=== PATIENT | female | born 1975 | race African-American/Black ===

== ENCOUNTER 2020-01-22 17:30 | Observation (INO) | payer OTHER ==
[2020-01-22] MEDS ORDERED: TETANUS & DIPHTHERIA TOX,ADULT 0.5 ML VIAL ONE (18:31)
[2020-01-22] MEDS ORDERED: MORPHINE 2 MG/ML SYR ONE ×2 (18:31→19:39)
[2020-01-22] MEDS ORDERED: ONDANSETRON 4 MG/2 ML VIAL ONE (18:31)
[2020-01-22 18:34] LABS: Absolute Lymphocytes (CBC) 1.2 K/uL (0.7-4.9); Basophils % 0.7 % (0-1.3); Hematocrit 34.1 % (36.0-45.0); Lymphocytes % 21.1 % (15.3-44.8); RBC Red Blood Cell Count 3.71 M/uL (3.86-4.86)
[2020-01-22 18:50] LABS: Albumin 3.5 g/dL (3.4-5.0); Bilirubin Direct 0.1 mg/dL (0-0.2); Bilirubin Total 0.4 mg/dL (0.2-1.0); Potassium 3.3 mmol/L (3.5-5.1)
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
--- NOTE | 2020-01-22 19:13 | RAD REPORT ---
EXAM DESCRIPTION: RAD - Shoulder Right 2 View - 01/22/2020 6:58 pm CLINICAL HISTORY: Right shoulder pain FINDINGS: No fracture or dislocation is seen involving the right shoulder
--- NOTE | 2020-01-22 19:14 | RAD REPORT ---
EXAM DESCRIPTION: RAD - Elbow Right 3 View - 01/22/2020 6:59 pm CLINICAL HISTORY: Elbow pain FINDINGS: No fracture or dislocation is seen.
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
--- NOTE | 2020-01-22 19:19 | RAD REPORT ---
EXAM DESCRIPTION: Mauricio Single View01/22/2020 6:31 pm CLINICAL HISTORY: Chest pain FINDINGS: The lungs appear clear of acute infiltrate. The heart is normal size. Multiple nondisplaced and minimally displaced right rib fractures are better seen on the CT chest marlena e date
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
[2020-01-22] MEDS ORDERED: NS KCL 20MEQ 1,000 ML IV ONE (19:40)
[2020-01-22] MEDS: NS KCL 20MEQ 20 MEQ/1,000 ML BAG IV SCH (22:10)
[2020-01-22] MEDS ORDERED: ONDANSETRON 4 MG/2 ML VIAL IV PRN (22:10)
[2020-01-22] MEDS ORDERED: ACETAMINOPHEN 325 MG TABLET PO PRN (22:23)
[2020-01-22 22:59] VITALS: BMI 35.5
[2020-01-22] MEDS: FAMOTIDINE 20 MG/2 ML VIAL IV SCH (23:24)
[2020-01-22] MEDS: MORPHINE 4 MG/ML SYR IV PRN (23:38)
[2020-01-23] MEDS: NS KCL 20MEQ 20 MEQ/1,000 ML BAG IV SCH (04:43)
[2020-01-23 05:20] LABS: Absolute Lymphocytes (CBC) 1.4 K/uL (0.7-4.9); Basophils % 0.7 % (0-1.3); Hematocrit 31.3 % (36.0-45.0); Lymphocytes % 22.6 % (15.3-44.8); MPV 9.3 fL (7.6-11.3); RBC Red Blood Cell Count 3.37 M/uL (3.86-4.86)
[2020-01-23] MEDS: MORPHINE 4 MG/ML SYR IV PRN (05:36)
[2020-01-23 05:39] LABS: BUN Blood Urea Nitrogen 7 mg/dL (7-18); Bicarbonate 24 mmol/L (21-32); Glucose Level 99 mg/dL (74-106); Potassium 3.8 mmol/L (3.5-5.1); Sodium Level 140 mmol/L (136-145)
[2020-01-23] MEDS: FAMOTIDINE 20 MG/2 ML VIAL IV SCH (07:50)
--- NOTE | 2020-01-23 08:54 | RAD REPORT ---
EXAM DESCRIPTION: Mauricio Single View01/23/2020 7:02 am CLINICAL HISTORY: Chest pain COMPARISON: January 21 FINDINGS: The lungs appear clear of acute infiltrate. The heart is normal size. No change in the right rib fractures
[2020-01-23 09:05] VITALS: O2SAT 98
[2020-01-23] MEDS ORDERED: FENTANYL 25 MCG/PATCH TD ONE (10:13)
[2020-01-23] MEDS: CODEINE 30MG/APAP 300MG TAB PO PRN ×2 (10:29→14:31)
[2020-01-23 12:07] VITALS: BP 128/84; TEMP 96.9
--- NOTE | 2020-01-23 12:28 | P.DS ---
Admission Date: 01/22/20 Discharge Date: 01/23/20 Disposition: ROUTINE DISCHARGE Discharge Condition: GOOD Vital Signs/Physical Exam: Temp Pulse Resp BP Pulse Ox 96.9 F 79 16 128/84 100 01/23/20 12:00 01/23/20 12:00 01/23/20 12:00 01/23/20 12:00 01/23/20 12:00 General: Alert, In no apparent distress, Oriented x3, Cooperative HEENT: Atraumatic, Normocephalic, PERRLA, EOMI Neck: Supple, Without JVD or thyroid abnormality Respiratory: Clear to auscultation bilaterally, Normal air movement Cardiovascular: No edema, Normal pulses, Regular rate/rhythm Gastrointestinal: Normal bowel sounds, Soft and benign, Non-distended, No tenderness, No rebound, No guarding Musculoskeletal: No contractures, No erythema, No warmth Integumentary: No rashes, No breakdown, No warmth, No cyanosis Neurological: Normal gait, Normal speech, Normal strength at 5/5 x4 extr External genitalia: Deferred Rectal: Deferred Laboratory Data at Discharge: WBC 6.2 K/uL (4.3-10.9) 01/23/20 04:53 Hgb 10.4 g/dL (12.0-15.0) L 01/23/20 04:53 Hct 31.3 % (36.0-45.0) L 01/23/20 04:53 Plt Count 250 K/uL (152-406) 01/23/20 04:53 Sodium 140 mmol/L (136-145) 01/23/20 04:53 Potassium 3.8 mmol/L (3.5-5.1) 01/23/20 04:53 BUN 7 mg/dL (7-18) 01/23/20 04:53 Creatinine 0.63 mg/dL (0.55-1.3) 01/23/20 04:53 Glucose 99 mg/dL (74-106) 01/23/20 04:53 Total Bilirubin 0.4 mg/dL (0.2-1.0) 01/22/20 18:22 AST 97 U/L (15-37) H 01/22/20 18:22 ALT 90 U/L (12-78) H 01/22/20 18:22 Alkaline Phosphatase 89 U/L (45-117) 01/22/20 18:22 Lipase 62 U/L (73-393) L 01/22/20 18:22 Imagings Data: ct scan and imaging reviewed with pt Home Medications: Ergocalciferol (Vitamin D2) [Vitamin D2] 50,000 unit PO SEECOM 01/22/20 Phentermine HCl 37.5 mg PO DAILY 01/22/20 Zolpidem Tartrate [Ambien] 10 mg PO BEDTIME PRN 01/22/20 Hydrocodone Bit/Acetaminophen [Hydrocodon-Acetaminophen 5-325] 1 each PO Q4H PRN #30 tablet 01/23/20 New Medications: Hydrocodone Bit/Acetaminophen [Hydrocodon-Acetaminophen 5-325] 1 each PO Q4H PRN #30 tablet PRN Reason: Pain Scale 5-7 (Moderate) Patient Discharge Instructions: no contact sport. Incentive spirometry Diet: AHA Activity: No lifting more than 10 lbs Followup: Nadeem Zabala MD [ACTIVE - CAN ADMIT] - 1-2 Weeks (f/u with Dr. Zabala regarding right AC joint sprain ) Gavin Strong MD [ACTIVE - CAN ADMIT] - 1 Week
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
== END 2020-01-23 14:35 | disposition home or self-care (01) ==
LOC: ER 17:30 → ERHOLD 19:24 → 4TH 20:54
PROVIDERS: ADMIT Surgery; ATTEND Surgery
DX: S22.41XA Multiple fractures of ribs, right side, initial encounter for closed fracture (principal); S43.51XA Sprain of right acromioclavicular joint, initial encounter; S40.211A Abrasion of right shoulder, initial encounter; S50.311A Abrasion of right elbow, initial encounter; R10.819 Abdominal tenderness, unspecified site; J90 Pleural effusion, not elsewhere classified; V28.4XXA Motorcycle driver injured in noncollision transport accident in traffic accident, initial encounter; Z23 Encounter for immunization; Z20.828 Contact with and (suspected) exposure to other viral communicable diseases; Z98.84 Bariatric surgery status
CPT/HCPCS: 96361; 85025 ×2; 80048 ×2; 36415; 86900; 86850; 84132; 86901; 80076; 83690; 70450; 72125; 71260; 74177; 71045 ×2; 73130; 73080; 73030; 96375; 96374; 99285; U0002; Q9967; J2270 ×2; J2405; G0378 ×2; 90714